=== PATIENT | female | born 1975 | race Two or more races ===

== ENCOUNTER 2017-11-04 22:22 | Emergency (ER) | payer OTHER ==
[~2017-11-04] VITALS: Ht 165.1 cm; Wt 88.9 kg
[2017-11-04 22:23] VITALS: BP 154/98
== END 2017-11-05 01:45 | disposition home or self-care (01) ==
LOC: ED 23:59
DX: S83.422A Sprain of lateral collateral ligament of left knee, initial encounter (principal); S83.412A Sprain of medial collateral ligament of left knee, initial encounter; I10 Essential (primary) hypertension; W19.XXXA Unspecified fall, initial encounter; Y93.89 Activity, other specified; Y92.89 Other specified places as the place of occurrence of the external cause; Y99.8 Other external cause status
CPT/HCPCS: 29505; 99284

== ENCOUNTER 2018-03-10 02:54 | Emergency (ER) | payer MEDICAID, OTHER ==
[~2018-03-10] VITALS: Ht 165.1 cm; Wt 123.5 kg
[2018-03-10 02:57] VITALS: BP 141/85
== END 2018-03-10 04:26 | disposition home or self-care (01) ==
LOC: ED 04:01
DX: R60.0 Localized edema (principal); I10 Essential (primary) hypertension
CPT/HCPCS: 93970; 99284